=== PATIENT | female | born 1945 | race Caucasian/White ===

== ENCOUNTER 2022-09-21 17:38 | Emergency (ER) | payer MEDICARE, SELFPAY ==
[2022-09-21 17:46] VITALS: BP 107/62; PULSE 91; RESP 22; TEMP 36.5; O2SAT 95; BMI 30.2
--- NOTE | 2022-09-21 17:46 | ED_ITS ---
HPI - SOB/Dyspnea General: Chief Complaint: Shortness of Breath/Dyspnea Stated Complaint: SOB Time Seen by Provider: 09/21/22 17:45 History of Present Illness: HPI Narrative: Ms Nicholas is a 77-year-old lady with thyroid disorder and hypertension who is postop from shoulder surgery on 09/15 presenting to the emergency department for shortness of breath. She was recovering as expected with some variability in pain including left-sided rib pain despite right-sided surgery and some nausea and vomiting however last night got up to go to the bathroom and became acutely dyspneic. This is persisted. No baseline lung disease or oxygen requirement. She does note mildly productive cough. Denies chest pain, leg swelling, leg pain. Intensity symptoms is moderate and severe with exertion. No other specific changes in health, exacerbating, or alleviating factors identified. Onset (ago): hour(s) Context: other Timing: progressively worsening Severity: severe Exacerbating factors: exertion Relieving factors: nothing Known history of: other Associated symptoms: Reports cough Review of Systems General: Reports: 10 or more systems reviewed and unremarkable except in HPI and below PFSH ED PFSH: Medical History (Updated 10/06/22 @ 09:59 by Venu Gordillo MD) Hypertension Thyroid disorder Surgical History (Updated 10/06/22 @ 09:59 by Venu Gordillo MD) H/O shoulder surgery Physical Exam Const: COMMON NORMALS: alert GENERAL APPEARANCE: cooperative and well developed HENMT: COMMON NORMALS: normocephalic and atraumatic HEAD & SCALP: normocephalic and atraumatic THROAT: posterior oropharynx normal Eye: COMMON NORMALS: conjunctivae normal CONJUNCTIVA: Yes conjunctivae normal SCLERA: sclerae normal Neck/C-Spine: COMMON NORMALS: supple GENERAL: Yes trachea midline Resp: COMMON NORMALS: clear to auscultation bilaterally EFFORT & INSPECTION: Yes able to speak in complete sentences AUSCULTATION: clear to auscultation bilaterally Cardio: COMMON NORMALS: regular rhythm RATE: tachycardic RHYTHM: regular rhythm GI: COMMON NORMALS: Soft to palpation PALPATION: Yes Soft to palpation and No Tenderness to palpation present (GI) Extremity: NARRATIVE EXTREMITY EXAM: Postop shoulder immobilizer in place. Distal CMS intact. GENERAL: Yes normal exam except as noted and No edema Neuro: COMMON NORMALS: moves all extremities SENSORIUM/ORIENTATION: Yes alert and No Orientation impaired Psych: COMMON NORMALS: mental status grossly normal and Normal thought process present THOUGHT PROCESS: Normal thought process present Course Vital Signs: Vital signs: Vital Signs Temperature 97.7 F 09/21/22 17:46 Pulse Rate 100 09/21/22 21:28 Respiratory Rate 21 H 09/21/22 21:28 Blood Pressure 121/72 09/21/22 21:28 Pulse Oximetry 100 09/21/22 21:28 Oxygen Delivery Me thod Nasal Cannula 09/21/22 21:28 Oxygen Flow Rate 3 09/21/22 21:28 MDM - SOB/Dyspnea Medical Decision Making 77-year-old lady presenting to the emergency department for evaluation of sudden onset shortness of breath in the context of recent surgery. Patient has new oxygen requirement. She appears somewhat uncomfortable. She is nontoxic in there is no evidence of surgical issue. Labs notable for mild leukocytosis, normal hemoglobin and platelet count. There is respiratory alkalosis on ABG. Metabolic panel with decreased bicarb, mild transaminitis. Initial troponin elevated and BNP elevated. COVID is negative. Chest x-ray is negative for acute pathology. CTA demonstrates bilateral central and peripheral pulmonary emboli with significant burden and possible pulmonary infarct. Patient endorses severe allergy to alpha-gal. I cannot find well-defined recommendations regarding heparin and based on primary literature review as performed in time critical situation I proceeded with Lovenox. Patient appears to tolerate this medication without complication Additional treatments with IV fluids, antiemetic. Patient requires transfer for consideration of embolectomy not available at our facility. Though she does not have saddle PE or evidence of right heart strain on CT imaging she certainly has evidence of right heart strain on laboratory s tudies and new oxygen requirement. The results of ED evaluation were discussed with the patient including plan for transfer due to requirement for level of care not available if discharged to prevent significant worsening/deterioration. Patient agreeable with plan. Patient accepted by [facility] as ER to ER transfer to [place]. Patient requires emergent transfer by the fastest means possible for potentially time critical intervention to prevent significant morbidity or mortality. Medical Records I reviewed the patient's medical records. Lab Data I reviewed the patient's lab results. 09/21/22 18:24 09/21/22 18:24 Labs/Radiology: Radiology Impressions Chest X-Ray 09/21/22 18:01 IMPRESSION: No acute cardiopulmonary abnormality. Chest CTA 09/21/22 18:23 IMPRESSION: 1. Bilateral central and peripheral pulmonary emboli suggesting significant pulmonary emboli burden. 2. Wedge-shaped opacity anterolateral pleural margin lower right lung is most likely a pulmonary infarct. Mild bilateral basilar atelectasis. 3. Mild arteriosclerosis of the thoracic aorta and coronary artery calcification. THIS REPORT CONTAINS FINDINGS THAT MAY BE CRITICAL TO PATIENT CARE. The findings were verbally communicated via telephone conference with Venu Gordillo at 7:24 PM CDT on 09/21/2022. The findings were acknowledged and understood. Laboratory Results WBC 14.9 10^3/uL (4.0-10.0) H 09/21/22 18:24 RBC 4.14 10^6/uL (4.1-5.3) 09/21/22 18:24 Hgb 11.6 g/dL (11.5-15.3) 09/21/22 18:24 Hct 36.4 % (37.0-47.0) L 09/21/22 18: MCV 87.9 fl (81-99) 09/21/22 18: MCH 28.0 pg (28.0-34.0) 09/21/22 18: MCHC 31.9 g/dL (30.0-36.0) 09/21/22 18: RDW 13.2 % (12.1-15.1) 09/21/22 18:24 Plt Count 328 10^3/cmm (130-400) 09/21/22 18: MPV 9.7 fL (7.4-10.4) 09/21/22 18:24 Neut % (Auto) 76.3 % 09/21/22 18:24 Lymph % (Auto) 12.7 % 09/21/22 18:24 [place] % (Auto) 9.6 % 09/21/22 18: Eos % (Auto) 0.7 % 09/21/22 18: Baso % (Auto) 0.3 % 09/21/22 18:24 Neut # (Auto) 11.38 10^3/uL (1.8-7.7) H 09/21/22 18:24 Lymph # (Auto) 1.9 10^3/uL (0.8-4.8) 09/21/22 18:24 [place] # (Auto) 1.4 10^3/uL (0.2-0.9) H 09/21/22 18:24 Eos # (Auto) 0.1 10^3/uL (0.0-0.8) 09/21/22 18:24 Baso # (Auto) 0.0 10^3/uL (0.0-0.1) 09/21/22 18:24 Nucleated RBC % (auto) 0 % 09/21/22 18: Nucleated RBCs # 0.0 /100WBC 09/21/22 18:24 PT 13.40 SECONDS (12.1-14.9) 09/21/22 18: INR 0.99 (0.8-1.2) 09/21/22 18: APTT 28.8 SECONDS (23.9-36.7) 09/21/22 18:24 Specimen Type Arterial 09/21/22 18:08 Sample Site Radial, right 09/21/22 18:08 ABG pH 7.50 (7.35-7.45) H 09/21/22 18:08 ABG pCO2 24.8 mmHg (35-45) L 09/21/22 18:08 ABG pO2 97.0 mmHg (80.0-100.0) 09/21/22 18:08 ABG HCO3 19.2 mmol/L (22-26) L 09/21/22 18:08 ABG Base Excess -2.7 mmol/L (-2.0-2.0) L 09/21/22 18:08 Hammad Test Pos 09/21/22 18:08 Hematocrit 36.3 % (37-47) L 09/21/22 18:08 O2 Delivery Device Nc 09/21/22 18:08 O2 Liters/Min 3.0 % 09/21/22 18:08 FiO2 32.0 % 09/21/22 18:08 Parts Technician ID [email or web address] 09/21/22 18:08 Sodium 138 mmol/L (136-145) 09/21/22 18:24 Potassium 3.6 mmol/L (3.5-5.1) 09/21/22 18:24 Chloride 105 mmol/L (98-107) 09/21/22 18:24 Carbon Dioxide 17 mmol/L (22-29) L 09/21/22 18:24 Anion Gap Not Reportable 09/21/22 18:24 BUN 21 mg/dL (8-23) 09/21/22 18:24 Creatinine 0.9 mg/dL (0.5-0.9) 09/21/22 18:24 GFR Calculation Not Reportable 09/21/22 18:24 Glucose 116 mg/dL (65-115) H 09/21/22 18:24 POC Glucose 112 mg/dL (70-110) H 09/21/22 21:16 Calculated Osmolality Not Reportable 09/21/22 18:24 Lactate 1.5 mmol/L (0.5-2.2) 09/21/22 18:24 Calcium 9.1 mg/dL (8.5-10.5) 09/21/22 18:24 Magnesium 1.8 mg/dL (1.7-2.3) 09/21/22 18:24 Total Bilirubin 0.5 mg/dL (0.15-1.2) 09/21/22 18:24 AST 23 U/L (0-32) 09/21/22 18:24 ALT 38 U/L (0-33) H 09/21/22 18:24 Alkaline Phosphatase 121 U/L (35-105) H 09/21/22 18:24 Troponin T Baseline 75 ng/L (0-10) H 09/21/22 18:24 Troponin T 120 Minute 72.18 ng/L (0-10) H 09/21/22 21:08 Delta Troponin T -2.82 ABS# (0-10) L 09/21/22 21:08 C-Reactive Protein 84.1 mg/L (0.0-4.9) H 09/21/22 18:24 NT-Pro-B Natriuret Pep 4188 pg/mL (0-450) H 09/21/22 18:24 Total Protein 7.1 g/dL (6.6-8.7) 09/21/22 18:24 Albumin 3.5 g/dL (3.5-5.2) 09/21/22 18:24 Globulin 3.6 g/dL (1.3-4.6) 09/21/22 18:24 Procalcitonin 0.06 ng/mL (0-0.5) 09/21/22 18:24 TSH 3.49 uIU/mL (0.27-4.20) 09/21/22 18:24 SARS-CoV-2 Ag (Rapid) negative (Negative) 09/21/22 19:08 Critical Care Time Critical Care Time: Critical Care Time: Yes Total Critical Care Time: 50 Attestation: Due to a high probability of clinically significant, possibly life threatening deterioration, the patient required my highest level of attention and preparedness to intervene emergently and I personally spent this critical care time directly and personally managing the patient. This critical care time inclu ded obtaining a history; examining the patient; pulse oximetry; ordering and review of laboratory and imaging studies; arranging urgent treatment with development of a management plan; evaluation of patient's response to treatment; frequent reassessment; and, discussions with other providers as applicable. It was exclusive of separately billable procedures. Primary system involved is cardiopulmonary Discharge Plan Discharge Patient Disposition: Transfer to ED Clinical Impression: Pulmonary embolism and infarction, Respiratory failure with hypoxia, Post- operative state Condition: Stable Referrals: Gege Moseley FNP [Primary Care Provider] - Coding Level of Care Code ED Cable Engineer for Earline Cai
[2022-09-21 17:55] VITALS: BP 107/62; PULSE 99; RESP 16; O2SAT 96
--- NOTE | 2022-09-21 18:01 | XRR_ITS ---
PROCEDURE INFORMATION: Exam: XR Chest Exam date and time: 09/21/2022 6:07 PM Age: 77 years old Clinical indication: Shortness of breath; Prior surgery; Surgery type: Recent right shoulder replacement; Additional info: SOB, post op TECHNIQUE: Imaging protocol: Radiologic exam of the chest. Views: 1 view. COMPARISON: No relevant prior studies available. FINDINGS: Lungs: Small benign calcified granuloma left lung base. No focal infiltrate or consolidation. Pleural spaces: Unremarkable. No pleural effusion. No pneumothorax. Heart/Mediastinum: Unremarkable. No cardiomegaly. Bones/joints: Right shoulder prosthesis. XR/XR chest 1V portable [id number] IMPRESSION: No acute cardiopulmonary abnormality.
[2022-09-21] MEDS: sodium chloride 0.9% 500 ML IV (18:19)
[2022-09-21] MEDS: ondansetron 2 mg/ML SDV 2 mL 4 MG IVP (18:19)
[2022-09-21 18:20] LABS: ABG PCO2 24.8 mmHg (35-45); Arterial Blood Gas Hematocrit 36.3 % (37-47); Base Excess ABG -2.7 mmol/L (-2.0-2.0); Blood Gas Allen Test Pos; Blood Gas Sample Site Radial, right; Blood Gas Sample Type Arterial; HCO3 ABG 19.2 mmol/L (22-26); Oxygen Device NC
--- NOTE | 2022-09-21 18:23 | CTR_ITS ---
PROCEDURE INFORMATION: Exam: CTA Chest With Contrast Exam date and time: 09/21/2022 6:43 PM Age: 77 years old Clinical indication: Shortness of breath; Additional info: SOB, hypoxia, post op TECHNIQUE: Imaging protocol: Computed tomographic angiography of the chest with contrast. 3D rendering (Not supervised by radiologist): MIP and/or 3D reconstructed images were created by the technologist. Radiation optimization: All CT scans at this facility use at least one of these dose optimization techniques: automated exposure control; mA and/or kV adjustment per patient size (includes targeted exams where dose is matched to clinical indication); or iterative reconstruction. Contrast material: OMNI 350; Contrast volume: 88 ml; Contrast route: INTRAVENOUS (IV); REPORTING DATA: Count of CT and Cardiac NM exams in prior 12 months: This patient has received 0 known CTs and 0 known cardiac nuclear medicine studies in the 12 months prior to the current study. COMPARISON: CR XR chest 1V portable [id number] 09/21/2022 6:07 PM RADIATION DOSE METRICS: Total DLP (mGy-cm): 377.57 FINDINGS: Pulmonary arteries: Multiple hypodense filling defects are seen within the left pulmonary artery and distal right pulmonary artery, as well as multiple segmental and subsegmental branches bilaterally indicating significant pulmonary emboli burden. No significant pulmonary artery enlargement. Aorta: Mild arteriosclerosis thoracic aorta. Lungs: Wedge-shaped area of opacity anterolateral lower right lung likely represents a pulmonary infarct. Mild basilar atelectasis, right greater than left. Pleural spaces: No significant pleural effusion or pneumothorax. Mild nonspecific pleural thickening bilaterally. Heart: No significant cardiomegaly. Coronary artery calcification. No significant pericardial effusion. Right ventricle to left ventricle ratio is 1. No significant right ventricular strain. Lymph nodes: A few mildly reactive lymph nodes suggested, without significant or prominent lymphadenopathy. Bones/joints: Mild spondylotic change thoracic spine and right shoulder prosthesis. Soft tissues: Unremarkable. CT/CT angio chest PE protcl [id number] IMPRESSION: 1. Bilateral central and peripheral pulmonary emboli suggesting significant pulmonary emboli burden. 2. Wedge-shaped opacity anterolateral pleural margin lower right lung is most likely a pulmonary infarct. Mild bilateral basilar atelectasis. 3. Mild arteriosclerosis of the thoracic aorta and coronary artery calcification. THIS REPORT CONTAINS FINDINGS THAT MAY BE CRITICAL TO PATIENT CARE. The findings were verbally communicated via telephone conference with Venu Gordillo at 7:24 PM CDT on 09/21/2022. The findings were acknowledged and understood.
--- NOTE | 2022-09-21 18:26 | ECG_ITS ---
[facility] Test Date: 2022-09-21 Pat Name: Alana Nicholas Department: Room: Gender: Female Commercial Sales Director: : 1945 Requested By: Venu Gordillo Order Number: [id number] Reading MD: Marcial Conteh Measurements Intervals [place] Rate: 94 P: 33 TN: 162 QRS: 15 QRSD: 89 T: 37 QT: 376 QTc: 472 Interpretive Statements SINUS RHYTHM POSSIBLE ANTERIOR MYOCARDIAL INFARCTION , PROBABLY OLD [30 ms Q WAVE IN V3/V4, OR R < 0.2 mV IN V4] POSSIBLE INFERIOR MYOCARDIAL INFARCTION , PROBABLY OLD [30 ms Q WAVE IN II/aVF] No previous ECG available for comparison Electronically Signed On 09-21-2022 18:51:36 CDT by Marcial Conteh [email or web address]
[2022-09-21 18:43] LABS: Basophils % 0.3 %; Eosinophils # 0.1 10^3/uL (0.0-0.8); Eosinophils % 0.7 %; Hematocrit 36.4 % (37.0-47.0); Hemoglobin 11.6 g/dL (11.5-15.3); Lymphocytes # 1.9 10^3/uL (0.8-4.8); Lymphocytes % 12.7 %; Mean Corpuscular HGB Conc 31.9 g/dL (30.0-36.0); Mean Corpuscular Volume 87.9 fl (81-99); Mean Platelet Volume 9.7 fL (7.4-10.4); Monocytes # 1.4 10^3/uL (0.2-0.9); Monocytes % 9.6 %; Neutrophils # 11.38 10^3/uL (1.8-7.7); Neutrophils % 76.3 %; Nucleated Red Blood Cells % 0 %; Platelet Count 328 10^3/cmm (130-400); Red Blood Count 4.14 10^6/uL (4.1-5.3); Red Cell Distribution Width 13.2 % (12.1-15.1); White Blood Count 14.9 10^3/uL (4.0-10.0)
[2022-09-21] MEDS: iohexol 350 mg/mL 500 mL Btl (per mL) IV (18:45)
[2022-09-21 18:58] LABS: INR 0.99 (0.8-1.2)
[2022-09-21 18:59] LABS: Partial Thromboplastin Time 28.8 SECONDS (23.9-36.7)
[2022-09-21 19:00] LABS: Lactate (Lactic Acid level) 1.5 mmol/L (0.5-2.2)
[2022-09-21 19:05] LABS: Troponin(5th) Baseline 75 ng/L (0-10)
[2022-09-21 19:13] LABS: Procalcitonin 0.06 ng/mL (0-0.5); Thyroid Stimulating Hormone 3.49 uIU/mL (0.27-4.20)
[2022-09-21 19:17] VITALS: BP 110/75; PULSE 97; RESP 17; O2SAT 98
[2022-09-21 19:24] LABS: Alanine Aminotransferase 38 U/L (0-33); Albumin Level 3.5 g/dL (3.5-5.2); Alkaline Phosphatase 121 U/L (35-105); Aspartate Amino Transferase 23 U/L (0-32); Blood Urea Nitrogen 21 mg/dL (8-23); C Reactive Protein 84.1 mg/L (0.0-4.9); Calcium 9.1 mg/dL (8.5-10.5); Carbon Dioxide 17 mmol/L (22-29); Globulin 3.6 g/dL (1.3-4.6); Glucose 116 mg/dL (65-115); Magnesium 1.8 mg/dL (1.7-2.3); Total Bilirubin 0.5 mg/dL (0.15-1.2); Total Protein 7.1 g/dL (6.6-8.7)
--- NOTE | 2022-09-21 19:27 | PC.NURSE ---
Dr. Gordillo notified of patient having Alpha gal and allergy to meat products due to heparin. Dr. Gordillo will decide if medication will be given.
[2022-09-21 19:29] LABS: SARS Covid-2 Antigen negative (Negative)
--- NOTE | 2022-09-21 19:31 | PC.NURSE ---
Dr. Gordillo ordered lovenox and decided not to give heparin due to alpha gal
[2022-09-21 19:37] LABS: Chloride 105 mmol/L (98-107); Potassium 3.6 mmol/L (3.5-5.1); Sodium 138 mmol/L (136-145)
[2022-09-21 19:38] VITALS: BP 127/82; PULSE 101; RESP 14; O2SAT 98
[2022-09-21 19:47] LABS: NT Pro B Type Natriuretic Pept 4188 pg/mL (0-450)
[2022-09-21] MEDS: enoxaparin 80 mg/0.8 mL Syringe 75 MG SUBCUT (19:52)
[2022-09-21 20:37] VITALS: BP 110/83; PULSE 98; RESP 14; O2SAT 97
[2022-09-21 21:28] VITALS: BP 121/72; PULSE 100; RESP 21; O2SAT 100
[2022-09-21 21:33] LABS: Troponin 5 2HR 72.18 ng/L (0-10)
[2022-09-21 21:34] LABS: Troponin 5 2HR Delta -2.82 ABS# (0-10)
[2022-09-21] MEDS: sodium chloride 0.9% 500 ML 999 ML IV (21:56)
[2022-09-22 09:21] LABS: Glucose Point of Care 112 mg/dL (70-110)
== END 2022-09-21 22:24 ==
PROVIDERS: Emergency Provider Emergency Medicine; PCP Registered Nurse
DX: I26.99 Other pulmonary embolism without acute cor pulmonale (principal); J96.91 Respiratory failure, unspecified with hypoxia; Z98.890 Other specified postprocedural states; I10 Essential (primary) hypertension
CPT/HCPCS: 36415; 36416; 36600; 71045; 71275; 80053; 82803; 82962; 83605; 83735; 83880; 84145; 84443; 84484; 85025; 85610; 85730; 86140; 87040; 87426; 93005; 96361; 96372; 96374; 99285; J1650; J2405; J7040; Q9967